=== PATIENT | male | born 1965 | race Caucasian/White ===

== ENCOUNTER → 2023-09-26 06:29 | Day surgery (SDC) | payer MEDICARE, OTHER, SELFPAY | LOC: GI 06:29 | PROVIDERS: ATTENDING PHYSICIAN Internal Medicine Gastroenterology | DX: Z12.11 Encounter for screening for malignant neoplasm of colon (principal); K64.8 Other hemorrhoids | CPT/HCPCS: G0121 ==

== ENCOUNTER 2024-08-19 17:41 | Emergency (ER) | payer MEDICARE, OTHER, SELFPAY ==
[2024-08-19] VITALS (8 sets, daily range): BP systolic 130–163; BP diastolic 74–108
[2024-08-19 19:38] LABS: % Basophils 0.4 % (0-2); % Eosinophils 2.7 % (0-6); % Immature Granulocytes 0.4 % (0-0.5); % Lymphocytes 19.1 % (20.5-51.1); % Monocytes 6.2 % (1.7-9.3); % Neutrophils 71.2 % (42.2-75.2); Absolute Eosinophils 0.2 10^3/uL (0-0.7); Absolute Lymphocytes 1.6 10^3/uL (1.2-3.4); Absolute Monocytes 0.5 10^3/uL (0.1-0.6); Absolute Neutrophils 5.9 10^3/uL (1.4-6.5); Hematocrit 42.5 % (39.0-52.0); Hemoglobin 14.8 g/dL (13.0-18.0); Mean Corp Hgb Conc. 34.8 g/dL (33.0-37.0); Mean Corpuscular Volume 83.2 fL (80.0-94.0); Mean Platelet Volume 9.8 fL (7.4-10.4); Nucleated Red Blood Cells % 0 % (-); Platelet Count 180 10^3/uL (130-400); Red Blood Cell Count 5.11 10^6/uL (4.70-6.10); Red Cell Dist. Width 12.9 % (11.5-14.5); White Blood Cell Count 8.3 10^3/uL (4.8-10.8)
--- NOTE | 2024-08-19 19:46 | ED.GENMED ---
History of Present Illness
<Chandan Dangeol MD - Last Filed: 08/20/24 01:56>
General
Chief Complaint: Breathing Problem
Source: patient
Exam Limitations: none
Time Seen by Provider: 08/19/24 19:04
Nursing documentation reviewed up to this point in time: agreed with
History of Present Illness
History of Present Illness:
Patient with history of COPD, presents to ED secondary to persistent intermittent cough, shortness of breath, and fatigue. Patient was admitted at [facility] for similar complaint earlier this month. Patient states that for the past 10
days, he has been living at local hotel, without his medications. Patient also reports mild chest discomfort, which has been persistent for the past month, as well as intermittent vomiting and diarrhea. Denies leg pain or swelling. Denies recent
injury. Denies back pain. Patient states that he currently has been staying at a local hotel, as his primary residence is infested with mold and is unsafe. Due to his progressive symptoms and generalized weakness, an outside organization is
working with [facility] to place him at rehab facility for strengthening/conditioning. He was told that [facility] may be able to accommodate him over the next 1 to 2 days.
Past History
<Chandan Dangelo MD - Last Filed: 08/20/24 01:56>
Past History
ED Past Medical History: CVA, GERD, HTN, Hypercholesterolemia, Psychiatric (bipolar), Other (dvt) and Other (PTSD)
ED Past Surgical History: Orthopedic
Social History
Tobacco: Former smoker
Alcohol: Former (quit in 2010)
Drug: None
Personal: Single
Living: with family
Employment: Not employed
Family History
Family History: CAD
Review of Systems
<Chandan Dangelo MD - Last Filed: 08/20/24 01:56>
Review of Systems
Allergies reviewed?: Yes
All Other Systems: ROS reviewed and negative except as documented in HPI and ROS
Constitutional: Reports no symptoms; Denies fever
Respiratory: Reports cough and trouble breathing
Cardiac: Reports chest pain
ABD/GI: Reports vomiting and diarrhea
Musculoskeletal: Reports no symptoms
Skin: Reports no symptoms
Neurological: Reports no symptoms
Phy Exam
<Chandan Dangelo MD - Last Filed: 08/20/24 01:56>
Physical Exam
Physical Exam:
Physical Exam
General: no apparent distress, not acutely ill. afebrile
Head: nc/at. eomi
Neck: supple. normal range of motion.
Heart: s1/s2 regular rate and rhythm
Lungs: mild respiratory distress. diminished breath sounds bilaterally
Abdomen: normal bowel sounds. not tender.
Neuro: alert and oriented x 3. no focal neurological deficits
Skin: no rash
Psychiatric: well kept. interactive and cooperative
Extremities: no edema. no calf tenderness.
Scores
<Ronald Champagne MD - Last Filed: 08/20/24 15:36>
Heart Failure Risk
Heart Failure Risk Score: Not Applicable
Course
<Chandan Dangelo MD - Last Filed: 08/20/24 01:56>
Orders/Labs/Results
Orders:
Orders
08/19/24 19:28
Complete Blood Count/With Diff Urgent
Comprehensive Metabolic Panel Urgent
Magnesium Urgent
Comment: ADD ON
Troponin I Urgent
08/19/24 19:39
Add On- LAB Urgent
Tests Added?: magnesium
08/19/24 19:40
0.9% Sodium Chloride 500 ml [Nss] 500 ml IV BOLUS
Dexamethasone Sod Phosphate [Decadron] 6 mg IV NOW STA
Ipratropium/Albuterol Sulfate [Duoneb] 3 ml INH R NOW STA
CR Chest - 2 Views Urgent
Comment:
Reason For Exam: cough/sob
08/19/24 19:53
Electrocardiogram (*1) Urgent
Reason for Study: Chest Pain
EKG- Treatment ONCE
08/19/24 23:49
Case Management Consult ONCE
Case Management Consult: Discharge Planning
08/20/24 09:28
OT Consult [Ot Eval And Treat] Urgent
Pt Eval And Treat Urgent
Activity Level: With Assistance
08/20/24 10:01
Acetaminophen [Tylenol] 650 mg PO NOW STA
08/20/24 14:48
Crisis Consult Routine
Reason for Consult: bipolar d/o
Abnormal Lab Results
08/19/24
19:28
Lymphocytes % 19.1 L %
(20.5-51.1)
Glucose 125 H mg/dl
(70-99)
08/19/24 19:28
08/19/24 19:28
Vital Signs
Initial and Last Documented VS:
Initial Vital Signs
Temp Pulse Resp Pulse Ox
36.9 C 89 18 96
08/19/24 17:47 08/19/24 17:47 08/19/24 17:47 08/19/24 17:47
Last Documented Vital Signs
Temp Pulse Resp BP Pulse Ox
36.9 C 76 22 163/92 92
08/19/24 17:47 08/19/24 23:41 08/19/24 23:30 08/19/24 23:41 08/19/24 22:15
<Ronald Chmapagne MD - Last Filed: 08/20/24 15:36>
Orders/Labs/Results
Orders:
Orders
08/19/24 19:28
Complete Blood Count/With Diff Urgent
Comprehensive Metabolic Panel Urgent
Magnesium Urgent
Comment: ADD ON
Troponin I Urgent
08/19/24 19:39
Add On- LAB Urgent
Tests Added?: magnesium
08/19/24 19:40
0.9% Sodium Chloride 500 ml [Nss] 500 ml IV BOLUS
Dexamethasone Sod Phosphate [Decadron] 6 mg IV NOW STA
Ipratropium/Albuterol Sulfate [Duoneb] 3 ml INH R NOW STA
CR Chest - 2 Views Urgent
Comment:
Reason For Exam: cough/sob
08/19/24 19:53
Electrocardiogram (*1) Urgent
Reason for Study: Chest Pain
EKG- Treatment ONCE
08/19/24 23:49
Case Management Consult ONCE
Case Management Consult: Discharge Planning
08/20/24 09:28
OT Consult [Ot Eval And Treat] Urgent
Pt Eval And Treat Urgent
Activity Level: With Assistance
08/20/24 10:01
Acetaminophen [Tylenol] 650 mg PO NOW STA
08/20/24 14:48
Crisis Consult Routine
Reason for Consult: bipolar d/o
Abnormal Lab Results
08/19/24
19:28
Lymphocytes % 19.1 L %
(20.5-51.1)
Glucose 125 H mg/dl
(70-99)
08/19/24 19:28
08/19/24 19:28
Vital Signs
Initial and Last Documented VS:
Initial Vital Signs
Temp Pulse Resp Pulse Ox
36.9 C 89 18 96
08/19/24 17:47 08/19/24 17:47 08/19/24 17:47 08/19/24 17:47
Last Documented Vital Signs
Temp Pulse Resp BP Pulse Ox
36.9 C 76 22 163/92 92
08/19/24 17:47 08/19/24 23:41 08/19/24 23:30 08/19/24 23:41 08/19/24 22:15
<Chandan Dangelo MD - Last Filed: 08/20/24 01:56>
MDM/Problems Addressed
MDM/Problems Addressed:
Patient with an unremarkable workup in ED, including blood work, EKG, and chest x-ray. Patient otherwise remains afebrile, hemodynamically stable, and without any acute respiratory distress. Patient is able to ambulate in ED without any
desaturation or respiratory distress. Patient states that he feels safe to be discharged, but will need short-term housing until the rehab facility is able to accommodate him. As such, will consult case management to assist with discharge planning.
<Chandan Dangelo MD - Last Filed: 08/20/24 01:56>
*EKG
Interpreted by ED Provider?: Yes
EKG Intrepretation Date: 08/19/24
Heart Rate: 74
Rhythm: sinus
[place]: normal axis
Interval: normal interval
QRS Pattern: normal QRS
<Ronald Champagne MD - Last Filed: 08/20/24 15:36>
*Critical Care Note
Total Time (30-74mins, 75-104mins- exclusive of procedures): Not Applicable
<Ronald Champagne MD - Last Filed: 08/20/24 15:36>
Update Note
Update Note:
UPDATE (Ronald Champagne MD)
I have seen and evaluated the patient after signout and reviewed all labs and imaging.
Focused HPI: I assumed care of this patient this morning�this is a 58-year-old male with history as noted who apparently presented with cough and shortness of breath and fatigue. He reported recent admission at [facility] for similar. He was
evaluated medically last night and cleared for discharge but because of ambulatory issues he was observed overnight pending case management consultation and consideration for placement in rehab.
Physical exam: Awake alert resting comfortably in in chair. Eating lunch box. Not in distress.
Medical Decision Making: Patient was held here overnight pending case management consultation for consideration of rehab for ambulatory dysfunction. Case management requesting PT and OT evaluation and so these were ordered. Patient initially was
very combative with our physical therapy staff to the point that they had to leave the room. He was then very apologetic and they were willing to reassess him. Recommended outpatient therapy versus inpatient rehab�patient's preference was for
inpatient rehab. Case management performed a consultation but unfortunately they were unable to obtain approval via patient's insurance for inpatient rehab out of the emergency room. There is no indication for medical admission. During case
management's review of his chart it came to light that patient has a long history of bipolar disorder and there were some recent concerns through [facility] for manic behavior. Patient denies. Case was discussed with crisis who performed
assessment�patient declined psychiatric treatment. Patient will be discharged.
ED Attending Note
<Chandan Dangelo MD - Last Filed: 08/20/24 01:56>
-
Portions of this chart may have been created with voice recognition software.� Occasional wrong word or��sound alike� substitutions may have occurred due to the inherent limitations of voice recognition software.
Discharge Plan
Departure
Patient Disposition: Home (Routine Discharge)
Date of Disposition: 08/20/24
Time of Disposition: 05:44
Patient with high blood pressure during this ER visit?: No
Condition: Good
Discharge Problem:
Homelessness, COPD (chronic obstructive pulmonary disease), chronic ambulatory dysfunction
Prescriptions:
No Action
aspirin 81 MG tablet,delayed release (DR/EC)
81 mg PO DAILY 0RF
ibuprofen [Advil Liqui-Gel] 200 MG capsule
400 mg PO BIDPRN PRN (Reason: headaches)
hydrochlorothiazide 50 mg Tablet
50 mg PO DAILY
prazosin 1 mg Capsule
1 mg PO TID
lisinopril 40 mg Tablet
40 mg PO DAILY
Trelegy Ellipta 100-62.5-25 mcg Blister With Device
1 inh INHALATION R DAILY
ipratropium-albuterol 0.5 mg-3 mg(2.5 mg base)/3 mL Solution For Nebulization
3 ml INHALATION R BIDPRN PRN (Reason: sob)
calcium carbonate [Tums] 200 mg calcium (500 mg) Tablet,Chewable
200 mg PO BIDPRN PRN (Reason: gerd)
albuterol sulfate [ProAir HFA] 90 mcg/actuation Hfa Aerosol Inhaler
2 puff INHALATION R QIDPRN PRN (Reason: sob)
benztropine 1 mg tablet
1 mg PO BID Qty: 14 0RF
atorvastatin 20 mg Tablet
20 mg PO DAILY
lorazepam [Ativan] 1 mg Tablet
1 mg PO BIDPRN PRN (Reason: Anxiety)
sertraline [Zoloft] 50 mg Tablet
50 mg PO DAILY
lamotrigine 25 mg Tablet, Chewable Dispersible
25 mg PO HS 30 Days Qty: 30 0RF
acetaminophen 325 mg Tablet
650 mg PO Q4HPRN PRN (Reason: JULES, mild pain, or temp >100.4F) 7 Days Qty: 60 0RF
Referrals:
UNKNOWN - PT DOES,NOT KNOW [Unknown Provider] -
Interventions
Interventions:
*Risk Screen - Suicide Last Done: 08/19/24 19:27
*General Assessment Last Done: 08/19/24 19:17
*Neglect/Abuse Screening Last Done: 08/19/24 19:27
*ED- Fall Risk Assessment Last Done: 08/19/24 19:17
*ED COVID-19 Vaccine History Last Done: 08/19/24 19:17
*Nursing Disposition Last Done: 08/20/24 15:07
ED- Cardiac Assessment Last Done: 08/19/24 19:17
ED- Pulmonary Assessment Last Done: 08/19/24 19:17
Discharge Date and Time
Discharge Date/Time: 08/20/24 15:10
Print Language: INDONESIAN
[2024-08-19 19:59] LABS: ALT (SGPT) 32 U/L (0-50); AST (SGOT) 23 U/L (17-59); Albumin 4.2 g/dl (3.5-5.0); Alkaline Phosphatase 86 U/L (38-126); Blood Urea Nitrogen 14 mg/dl (9-20); Calcium 9.2 mg/dl (8.4-10.2); Carbon Dioxide 28 mmol/L (22-30); Chloride 104 mmol/L (98-107); Glucose 125 mg/dl (70-99); Potassium 4.1 mmol/L (3.5-5.1); Sodium 139 mmol/L (135-145); Total Bilirubin 0.5 mg/dl (0.2-1.3); Total Protein 6.6 g/dl (6.3-8.2); eGFR > 60.00
[2024-08-19 20:03] LABS: Troponin I < 0.012 ng/ml
[2024-08-19] MEDS: DECADRON 6 MG IV (20:45)
[2024-08-19] MEDS: DUONEB 3 ML INH (20:45)
[2024-08-19] MEDS: NSS 500 IV (20:45)
[2024-08-20] MEDS: TYLENOL 650 MG PO (10:25)
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
--- NOTE | 2024-08-20 15:30 | VNURNOTE ---
Chart reviewed. PT/OT recs were SNF v. HH. Patient recently had home PT, OT w/[facility]. Spoke with Antonella at [facility]. She stated they DC'ed pt from their services today. Psych and crisis eval pending. This author was informed that
the patient left the hospital abruptly and was angry when crisis attempted to meet w/him. This author reached out to patient to explain [facility] services and to determine if he would be agreeable to services. No answer. No referral placed. Side Stapler
Dariusz hartmann.
== END 2024-08-20 15:10 | disposition home or self-care (01) ==
LOC: EMR 17:41
PROVIDERS: EMERGENCY PHYSICIAN Emergency Medicine; FAMILY PHYSICIAN Family Medicine
DX: J44.1 Chronic obstructive pulmonary disease with (acute) exacerbation (principal); R11.10 Vomiting, unspecified; R19.7 Diarrhea, unspecified; R26.2 Difficulty in walking, not elsewhere classified; R53.83 Other fatigue; R53.1 Weakness; Z59.00 Homelessness unspecified; E78.00 Pure hypercholesterolemia, unspecified; K21.9 Gastro-esophageal reflux disease without esophagitis; F31.9 Bipolar disorder, unspecified; F43.10 Post-traumatic stress disorder, unspecified; Z86.718 Personal history of other venous thrombosis and embolism; Z87.891 Personal history of nicotine dependence; Z88.0 Allergy status to penicillin; Z88.8 Allergy status to other drugs, medicaments and biological substances; Z91.030 Bee allergy status; Z91.048 Other nonmedicinal substance allergy status
CPT/HCPCS: 99285; 96374; 94640; 71046; 80053; 83735; 84484; 85025; 93005

== ENCOUNTER 2024-09-08 21:26 | Emergency (ER) | payer OTHER, SELFPAY ==
[2024-09-08 21:34] VITALS: BP 159/98
[2024-09-08 22:10] LABS: % Basophils 0.3 % (0-2); % Eosinophils 1.2 % (0-6); % Immature Granulocytes 0.2 % (0-0.5); % Lymphocytes 14.3 % (20.5-51.1); % Monocytes 6.2 % (1.7-9.3); % Neutrophils 77.8 % (42.2-75.2); Absolute Eosinophils 0.1 10^3/uL (0-0.7); Absolute Lymphocytes 1.3 10^3/uL (1.2-3.4); Absolute Monocytes 0.6 10^3/uL (0.1-0.6); Absolute Neutrophils 7.1 10^3/uL (1.4-6.5); Hematocrit 44.4 % (39.0-52.0); Hemoglobin 15.6 g/dL (13.0-18.0); Mean Corp Hgb Conc. 35.1 g/dL (33.0-37.0); Mean Corpuscular Hgb 28.6 pg (27.0-31.0); Mean Corpuscular Volume 81.5 fL (80.0-94.0); Mean Platelet Volume 9.8 fL (7.4-10.4); Nucleated Red Blood Cells % 0 % (-); Platelet Count 193 10^3/uL (130-400); Red Blood Cell Count 5.45 10^6/uL (4.70-6.10); Red Cell Dist. Width 12.8 % (11.5-14.5); White Blood Cell Count 9.2 10^3/uL (4.8-10.8)
[2024-09-08 22:17] LABS: Blood Urea Nitrogen 13 mg/dl (9-20); Carbon Dioxide 23 mmol/L (22-30); Chloride 108 mmol/L (98-107); Glucose 114 mg/dl (70-99); Potassium 3.7 mmol/L (3.5-5.1); Sodium 139 mmol/L (135-145); eGFR > 60.00
[2024-09-08 22:19] LABS: Alcohol None Detected
[2024-09-08] MEDS: ProAIR HFA INHALER 2 PUFF INH (23:48)
[2024-09-09] VITALS: BP 145/90
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
--- NOTE | 2024-09-09 09:00 | EDRN ---
Report received, introduced myself to patient who is eating breakfast asking about morning Meds, updated his list per what crisis had on file, patient to be leaving at 11 for [place]
[2024-09-09 09:20] LABS: Amphetamines Negative (Negative); Barbiturates Negative (Negative); Benzodiazepines Negative (Negative); Buprenorphine Negative (Negative); Cocaine Negative (Negative); Marijuana Positive (Negative); Methadone Negative (Negative); Methamphetamines Negative (Negative); Opiates Negative (Negative); Phencyclidine Negative (Negative); Tricyclic Antidepressants Negative (Negative)
== END 2024-09-09 11:19 ==
LOC: EMR 21:26
PROVIDERS: Emergency Medicine; EMERGENCY PHYSICIAN Student in an Organized Health Care Education/Training Program; FAMILY PHYSICIAN Family Medicine
DX: F32.A Depression, unspecified (principal); E78.00 Pure hypercholesterolemia, unspecified; F43.10 Post-traumatic stress disorder, unspecified; I10 Essential (primary) hypertension; J44.9 Chronic obstructive pulmonary disease, unspecified; Z82.49 Family history of ischemic heart disease and other diseases of the circulatory system; Z86.718 Personal history of other venous thrombosis and embolism; Z86.73 Personal history of transient ischemic attack (TIA), and cerebral infarction without residual deficits; Z87.891 Personal history of nicotine dependence
CPT/HCPCS: 99283; 80048; 80306; 82077; 85025